=== PATIENT | female | born 1970 | race Caucasian/White ===

== ENCOUNTER 2020-04-06 09:54 | Outpatient (CLI) | payer BC ==
--- NOTE | 2020-04-06 10:59 | RAD ---
THREE VIEWS CERVICAL SPINE: COMPARISON: Cervical spine radiographs 03/25/[address] 11/26/2016. HISTORY: Spondylolisthesis of the lower cervical spine. FINDINGS: Lateral views of the cervical spine were performed in neutral, flexion, and extension. The very subt le but questionable spondylolisthesis of C7 on T1 is slightly more prominent with flexion and is not definitely seen with extension. The vertebral bodies demonstrate normal height. No prevertebral sof t tissue swelling is seen. IMPRESSION: Slight prominence of spondylolisthesis of C7-T1 is increased with flexion. POS: [facility]
== END 2020-04-06 09:55 | disposition home or self-care (01) ==
LOC: RAD 09:54
PROVIDERS: ATTEND Nurse Practitioner Family
DX: M43.12 Spondylolisthesis, cervical region (principal); M43.13 Spondylolisthesis, cervicothoracic region
CPT/HCPCS: 72040; 72100

== ENCOUNTER 2021-12-18 15:27 | Outpatient (CLI) | payer BC ==
[2021-12-19 15:38] LABS: SARS-CoV-2 PCR by NAA Not Detected (NotDetected)
== END 2021-12-18 15:28 | disposition home or self-care (01) ==
LOC: LABBT 15:27
PROVIDERS: ATTEND Specialist
DX: Z01.812 Encounter for preprocedural laboratory examination (principal); S02.2XXA Fracture of nasal bones, initial encounter for closed fracture; J34.3 Hypertrophy of nasal turbinates; J32.9 Chronic sinusitis, unspecified; R55 Syncope and collapse; Z20.822 Contact with and (suspected) exposure to COVID-19
CPT/HCPCS: 85014; U0003; U0005

== ENCOUNTER 2021-12-21 07:30 | Day surgery (SDC) | payer BC ==
[2021-12-19 08:40] VITALS: BMI 32.3
[2021-12-21] MEDS ORDERED: AFRIN NASAL MIST 15 ML BOT ONE ×2 (09:10→09:30)
[2021-12-21] MEDS ORDERED: Bacitracin Zinc Ointment 30 gm TUBE ONE (09:30)
[2021-12-21] MEDS ORDERED: Xylocaine 1% w/ Epi 1:100K 10 ML VIAL ONE (09:30)
[2021-12-21] MEDS ORDERED: Fentanyl 100 MCG/2 ML VIAL ONE ×2 (09:38→10:47)
[2021-12-21] MEDS ORDERED: Rocuronium Bromide 10 MG/ML (10ML VIAL) ONE (09:49)
[2021-12-21] MEDS ORDERED: Glycopyrrolate 0.2 MG/ML 5 ML SYRINGE ONE (09:49)
[2021-12-21] MEDS ORDERED: Ondansetron PF 4 MG/2 ML Vial ONE (09:49)
[2021-12-21] MEDS ORDERED: PROPOFOL 200 MG/20 ML VIAL ONE (09:49)
[2021-12-21] MEDS ORDERED: Dexamethasone 20 MG/5 ML VIAL ONE (09:49)
[2021-12-21] MEDS ORDERED: HYDROcodone/Acetaminophen 5/325 mg Tablet ONE (12:18)
== END 2021-12-21 12:52 | disposition home or self-care (01) ==
LOC: SDC 07:30
PROVIDERS: ATTEND Specialist
PROC: 0NSBXZZ Reposition Nasal Bone, External Approach (ICD-10-PCS; principal; 2021-12-21)
PROC: 09TL8ZZ Resection of Nasal Turbinate, Via Natural or Artificial Opening Endoscopic (ICD-10-PCS; principal; 2021-12-21)
DX: S02.2XXA Fracture of nasal bones, initial encounter for closed fracture (principal); J34.3 Hypertrophy of nasal turbinates; J32.9 Chronic sinusitis, unspecified; R55 Syncope and collapse; K21.9 Gastro-esophageal reflux disease without esophagitis; D53.9 Nutritional anemia, unspecified; E66.01 Morbid (severe) obesity due to excess calories; Z68.32 Body mass index [BMI] 32.0-32.9, adult; Z79.2 Long term (current) use of antibiotics; Z79.899 Other long term (current) drug therapy; Z88.0 Allergy status to penicillin; Z88.1 Allergy status to other antibiotic agents; Z88.8 Allergy status to other drugs, medicaments and biological substances; Z98.84 Bariatric surgery status; W19.XXXA Unspecified fall, initial encounter
CPT/HCPCS: J1100; J2405; J2704; J3010

== ENCOUNTER 2022-03-19 09:03 | Outpatient (CLI) | payer BC ==
[2022-03-19 23:23] LABS: SARS-CoV-2 PCR by NAA Not Detected (NotDetected)
== END 2022-03-19 09:04 | disposition home or self-care (01) ==
LOC: LABBT 09:03
PROVIDERS: ATTEND Specialist
DX: Z01.812 Encounter for preprocedural laboratory examination (principal); J32.9 Chronic sinusitis, unspecified; J32.0 Chronic maxillary sinusitis; J32.1 Chronic frontal sinusitis; J32.2 Chronic ethmoidal sinusitis; J34.3 Hypertrophy of nasal turbinates; R09.81 Nasal congestion; J33.9 Nasal polyp, unspecified; Z20.822 Contact with and (suspected) exposure to COVID-19
CPT/HCPCS: 85014; U0003; U0005

== ENCOUNTER 2022-03-22 09:59 | Day surgery (SDC) | payer BC ==
[2022-03-20 09:36] VITALS: BMI 33.9
[2022-03-22] MEDS ORDERED: AFRIN NASAL MIST 15 ML BOT ONE ×2 (10:57→11:24)
[2022-03-22] MEDS ORDERED: EPINEPHrine 1 MG/ML AMP ONE (11:24)
[2022-03-22] MEDS ORDERED: Lidocaine 1% w/Epinephrine 1:100K 20 ML VIAL ONE (11:24)
[2022-03-22] MEDS ORDERED: fentaNYL Citrate/PF 100 MCG/2 ML SYRINGE ONE (11:25)
[2022-03-22] MEDS ORDERED: Midazolam HCl 2 mg/2 ml Vial ONE (11:32)
[2022-03-22] MEDS ORDERED: PHENYLEPHRINE-NS 100 MCG/ML 10 ML SYRINGE ONE (11:48)
[2022-03-22] MEDS ORDERED: Succinylcholine 200 MG/10 ml SYRINGE FS ONE (11:48)
[2022-03-22] MEDS ORDERED: Dexamethasone 20 MG/5 ML VIAL ONE (11:48)
[2022-03-22] MEDS ORDERED: PROPOFOL 200 MG/20 ML VIAL ONE (11:48)
[2022-03-22] MEDS ORDERED: Lidocaine 1% PF 5 ML VIAL ONE (11:48)
[2022-03-22] MEDS ORDERED: Fentanyl 100 MCG/2 ML VIAL ONE (12:35)
[2022-03-22] MEDS ORDERED: HYDROcodone/Acetaminophen 5/325 mg Tablet ONE (13:40)
== END 2022-03-22 14:12 | disposition home or self-care (01) ==
LOC: SDC 09:59
PROVIDERS: ATTEND Specialist
PROC: 09BR8ZZ Excision of Left Maxillary Sinus, Via Natural or Artificial Opening Endoscopic (ICD-10-PCS; principal; 2022-03-22)
PROC: 099X8ZZ Drainage of Left Sphenoid Sinus, Via Natural or Artificial Opening Endoscopic (ICD-10-PCS; principal; 2022-03-22)
PROC: 09TV8ZZ Resection of Left Ethmoid Sinus, Via Natural or Artificial Opening Endoscopic (ICD-10-PCS; principal; 2022-03-22)
PROC: 099T8ZZ Drainage of Left Frontal Sinus, Via Natural or Artificial Opening Endoscopic (ICD-10-PCS; principal; 2022-03-22)
DX: J32.8 Other chronic sinusitis (principal); L02.01 Cutaneous abscess of face; J30.9 Allergic rhinitis, unspecified; J34.3 Hypertrophy of nasal turbinates; J33.9 Nasal polyp, unspecified; K21.9 Gastro-esophageal reflux disease without esophagitis; Z79.899 Other long term (current) drug therapy; Z88.0 Allergy status to penicillin; Z88.1 Allergy status to other antibiotic agents; Z88.8 Allergy status to other drugs, medicaments and biological substances; Z98.84 Bariatric surgery status
CPT/HCPCS: 87070; 87076; 87205; J0171; J1100; J2250; J2704; J3010